=== PATIENT | male | born 1980 | race Two or more races ===

== ENCOUNTER 2024-07-25 15:22 | Emergency (ER) | payer MEDICAID, SELFPAY ==
[2024-07-25 16:08] VITALS: BP 146/89; PULSE 79; RESP 20; TEMP 36.7; O2SAT 95; BMI 44.0
--- NOTE | 2024-07-25 16:28 | EDNOTE_ITS ---
Lower Extremity Injury RME/HPI General Chief Complaint: Extremity Injury, Lower Stated Complaint: bilateral feet pain 06/20 Hx fx to right foot Time Seen by Provider: 07/25/24 15:31 Arrival date/time: 07/25/24 15:22 RME / HPI RME / HPI Narrative: 46-year-old male patient was brought in for evaluation regarding bilateral foot pain. 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 Patient denies any trauma. Denies any fever denies any other complaints no medication was taken prior to arrival. Related Data Home Medications ?Medication ?Instructions ?Recorded ?Confirmed multivitamin 1 tab PO QDAY 08/19/19 02/29/20 potassium chloride 8 mEq 8 meq PO QDAY 08/19/19 02/29/20 tablet,extended release ibuprofen 200 mg tablet (Motrin IB) 800 mg PO Q6H PRN Pain 02/29/20 02/29/20 phentermine 37.5 mg tablet 37.5 mg PO QDAY 02/29/20 02/29/20 Previous Rx's ?Medication ?Instructions ?Recorded acetaminophen 500 mg tablet 1,000 mg (2 x 500 mg) PO TID PRN 10/12/21 (Tylenol Extra Strength) fever or pain #30 tabs ibuprofen 600 mg tablet 600 mg PO TID PRN pain #30 tabs 10/12/21 hydrocodone 7.5 mg-acetaminophen 1 tab PO Q6H PRN pain #16 tabs 11/24/23 325 mg tablet dexamethasone 6 mg tablet 6 mg PO QDAY #10 tabs 07/25/24 furosemide 20 mg tablet (Lasix) 20 mg PO QAM #7 tabs 07/25/24 tramadol 37.5 mg-acetaminophen 325 1 tab PO TID PRN pain #20 tabs 07/25/24 mg tablet Allergies Allergy/AdvReac Type Severity Reaction Status Date / Time No Known Allergies Allergy Verified 11/24/23 09:18 Review of Systems Review of Systems Narrative Review of Systems: Review of system reviewed and within normal limits except mentioned in HPI ED Exam Narrative Physical exam: VITAL SIGNS: Reviewed. GENERAL APPEARANCE: Alert and interactive, follows commands, no acute distress, HEAD AND FACE: Non-traumatic. ENT: PERRL, pink conjunctivitis, eyelid no trauma, Mucous membrane moist. NECK: Supple, nontender, no nuchal rigidity. CHEST: No tenderness, no crepitus, no paradoxical movement, no retractions. LUNGS: Clear, well ventilated, symmetric, no rales, no wheezing, no ronchi, no stridor, good breath sounds bilaterally. HEART: Regular rate, regular rhythm, no murmur, no gallops. ABDOMEN: Soft, positive bowel sounds, nondistended, no guarding, nontender, no rebound, no masses, RECTAL: Deferred. GENITAL: Deferred. NEUROLOGICAL: Gross motor function intact sensory function intact, Appropriate for age. MUSCULOSKELETAL: low back nontender, full range of motion. EXTREMITIES: Bilateral foot tenderness, no redness to mild swelling, full range of motion. Distal neurovascular status intact bilateral foot SKIN: Color pink, dry, no rash, no lacerations, no abrasions, no contusions. LYMPHATICS: Deferred. Course Quality Measures none Orders Category Date Time Status Dexamethasone Inj [Decadron Inj] Med 07/25/24 16:25 Discontinued 10 mg IM X1 ONE Furosemide [Lasix] Med 07/25/24 16:25 Discontinued 40 mg PO X1 ONE Ketorolac Inj [Toradol Inj] Med 07/25/24 16:25 Discontinued 60 mg IM X1 ONE Vital Signs Vital signs: Vital Signs Temperature 98.0 F 07/25/24 16:08 Pulse Rate 79 07/25/24 16:08 Respiratory Rate 20 07/25/24 16:08 Blood Pressure 146/89 H 07/25/24 16:08 Pulse Oximetry (%) 95 07/25/24 16:08 Oxygen Delivery Method Room Air 07/25/24 16:08 Extremity Injury, Lower MDM Narrative MDM Narrative:: Workup imaging is not needed at this time patient denies any recent history of trauma. No fever no swelling no redness noted on the feet. Patient was given Lasix, Decadron, and Toradol Patient data External records reviewed:: None Clinical information provided by:: patient Social determinants that could affect healthcare access:: none Patient has the following chronic illnesses:: None How is presenting disease/condition affected by chronic disease/condition?: no chronic disease Evaluation data The following diagnostics were reviewed and interpreted by me:: other (specify) (None) Lab and/or radiology exams considered but not ordered:: None Interpretation Summary: None Medications / Prescriptions Medications or Prescriptions considered but not ordered:: None Medication administrations:: Medication Administration History Discontinued Medications Dexamethasone Sodium Phosphate (Dexamethasone Sod Phos Inj 10 Mg/Ml Vial) 10 mg IM X1 ONE Stop: 07/25/24 16:26 Furosemide (Furosemide 40 Mg Tablet) 40 mg PO X1 ONE Stop: 07/25/24 16:26 Ketorolac Tromethamine (Ketorolac Inj 60 Mg/2 Ml Vial) 60 mg IM X1 ONE Stop: 07/25/24 16:26 Decadron Lasix and Toradol Consultations Consultation(s) initiated? (list below): No Diagnosis Extremity Injury, Lower Differential Diagnosis: ankle sprain and strain and other (Bilateral foot pain, arthritis left foot) Most likely diagnosis given after review of the tests above:: Bilateral foot pain Admission Indicated Admission indicated?: not indicated Explain why admission is indicated or not indicated:: Stable Admission Request Was there a request for admission?: No Disposition Plan Disposition Plan: Discharge Discharge Attestation Discharge Attestation: The patient was given an opportunity to ask questions and understood the discharge instructions. Discharge instructions specifically effects, indications for sooner follow up or return to the emergency department, and the expected course of current diagnosis. Patient condition: Stable Discharge Plan Plan Patient Disposition: HOME (Self Care) Disposition Comment: Stable Prescriptions/Referrals Prescriptions/Med Rec: New tramadol-acetaminophen 37.5-325 mg tablet 1 tab PO TID PRN (Reason: pain) Qty: 20 0RF dexamethasone 6 mg tablet 6 mg PO QDAY Qty: 10 0RF furosemide [Lasix] 20 mg tablet 20 mg PO QAM Qty: 7 0RF No Action acetaminophen [Tylenol Extra Strength] 500 mg tablet 1,000 mg PO TID PRN (Reason: fever or pain) Qty: 30 0RF ibuprofen 600 mg tablet 600 mg PO TID PRN (Reason: pain) Qty: 30 0RF potassium chloride 8 mEq Tablet Extended Release 8 meq PO QDAY multivitamin Tablet 1 tab PO QDAY phentermine 37.5 mg Tablet 37.5 mg PO QDAY ibuprofen [Motrin IB] 200 mg Tablet 800 mg PO Q6H PRN (Reason: Pain) hydrocodone-acetaminophen 7.5-325 mg tablet 1 tab PO Q6H MDD 4 PRN (Reason: pain) Qty: 16 0RF Referrals: No Primary/Family,Physician [Primary Care Provider] - In 1 week Problem List Clinical Impression: Bilateral foot pain Patient/Caregiver Discharge Instructions Discharge Activity: activity as tolerated Education Materials: RICE Additional Instructions: Thank you for the opportunity for serving you today. You are stable for discharged . You are advised to: Follow-up with your PCP in 1 to 2 days Return to ED for worsening of symptoms Increase oral fluids Take medication as prescribed Elevate legs as needed Print Language: Icelandic Stand Alone Forms: Carmen Award Info., Patient Portal Info Letter PA/SATELLITE TECHNICIAN Supervising Physician PA/SATELLITE TECHNICIAN Supervising Physician: MD Brigitte
[2024-07-25] MEDS: DEXAMETHASONE SOD PHOS INJ 10 MG/ML VIAL IM (16:56)
[2024-07-25] MEDS: KETOROLAC INJ 60 MG/2 ML VIAL IM (16:56)
[2024-07-25 16:57] VITALS: BP 146/89; PULSE 79
[2024-07-25] MEDS: Furosemide 40 MG TABLET PO (16:57)
== END 2024-07-25 17:03 | disposition home or self-care (01) ==
PROVIDERS: Emergency Provider Emergency Medicine
DX: M79.672 Pain in left foot (principal); M79.671 Pain in right foot
CPT/HCPCS: 96372; 99283; J1100; J1885; A9270

== ENCOUNTER → 2024-09-19 | Outpatient (CLI) | payer MEDICAID, SELFPAY ==
--- NOTE | 2024-09-19 10:49 | XR_ITS ---
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
== END | disposition home or self-care (01) ==
PROVIDERS: PCP Podiatrist; Referring Provider Podiatrist; Visit Provider Podiatrist
DX: M19.072 Primary osteoarthritis, left ankle and foot (principal); M19.071 Primary osteoarthritis, right ankle and foot
CPT/HCPCS: 73630